=== PATIENT | female | born 1985 | race Caucasian/White ===

== ENCOUNTER 2018-07-11 09:35 | Observation (INO) | payer OTHER ==
[~2018-07-11] VITALS: Ht 154.9 cm; Wt 68.0 kg
[2018-07-11 10:34] VITALS: BP 111/73
[2018-07-11] MEDS ORDERED: PREN1TAB80 PO (10:36)
== END 2018-07-11 12:15 | disposition home or self-care (01) ==
LOC: 4S 09:35
PROVIDERS: ADMIT Obstetrics & Gynecology; ATTEND Obstetrics & Gynecology
DX: O48.0 Post-term pregnancy (principal); Z3A.39 39 weeks gestation of pregnancy
CPT/HCPCS: 59025; 76805; G0378

== ENCOUNTER 2018-07-15 18:00 | Observation (INO) | payer OTHER ==
[~2018-07-15] VITALS: Ht 154.9 cm; Wt 67.8 kg
[~2018-07-15 18:00] MED LIST: PREN1TAB80 PO
== END 2018-07-15 20:15 | disposition home or self-care (01) ==
LOC: 4S 18:00
PROVIDERS: ADMIT Obstetrics & Gynecology; ATTEND Obstetrics & Gynecology
DX: O48.0 Post-term pregnancy (principal); Z3A.41 41 weeks gestation of pregnancy
CPT/HCPCS: 59025; 76805; G0378

== ENCOUNTER 2018-07-17 08:19 | Inpatient (IN) | payer OTHER ==
[~2018-07-17] VITALS: Ht 154.9 cm; Wt 67.6 kg
[2018-07-17] MEDS ORDERED: OXYTOCIN 30 UNITS/LACT RINGERS 500 ML IV ONE (15:31)
[2018-07-17] MEDS ORDERED: RINGERS SOLUTION,LACTATED 1,000 ML IV PRN (15:31)
[2018-07-17] MEDS ORDERED: FentaNYL CITRATE-PF 100 MCG/2 ML VIAL IVP PRN (15:45)
[2018-07-17] MEDS ORDERED: METOCLOPRAMIDE HCL 5 MG/ML 2 ML VIAL IVP PRN (15:45)
[2018-07-17] MEDS ORDERED: LIDOCAINE/PF 1% 30 ML VIAL INJ PRN (15:45)
[2018-07-17] MEDS ORDERED: CITRIC ACID/SODIUM CITRATE 30 ML SOLUTION UDCUP PO PRN (15:45)
[2018-07-17] MEDS: RINGERS SOLUTION,LACTATED 1,000 ML IV SCH ×2 (16:12→18:55)
[2018-07-17 16:29] LABS: BASOPHILS % (AUTO) 0.1 % (0.0-2.0); EOSINOPHILS % (AUTO) 0.4 % (1.0-6.0); HEMATOCRIT 33.6 % (36-46); LYMPHOCYTES # (AUTO) 1.4 K/uL (1.0-4.8); LYMPHOCYTES % (AUTO) 17.2 % (22.0-44.0); MEAN CORPUSCULAR HEMOGLOBIN 23.1 pg (26.0-34.0); MEAN CORPUSCULAR HGB CONC 32.7 G/dL (31.0-37.0); MEAN CORPUSCULAR VOLUME 71 fL (80-100); MONOCYTES # (AUTO) 0.5 K/uL (0.1-1.0); MONOCYTES % (AUTO) 6.5 % (2.0-9.0); NEUTROPHILS # (AUTO) 6.2 K/uL (1.8-7.7); NEUTROPHILS % (AUTO) 75.8 % (40.0-70.0); PLATELET COUNT (AUTO)-OB 176 K/uL (150-450); RED BLOOD CELL COUNT(AUTO) 4.76 MIL/uL (4.00-5.20); RED CELL DISTRIBUTION WIDTH 18.4 % (11.5-14.5)
[2018-07-17 16:55] LABS: PLATELET MORPHOLOGY COMMENT LARGE PLTS PRESENT
[2018-07-17 17:29] LABS: PATHOLOGY REVIEW, DIFF SEE NOTE.
[2018-07-17] MEDS ORDERED: ROPIVACAINE HCL/PF 0.2% 100 ML ED PRN (18:15)
[2018-07-17] MEDS ORDERED: ONDANSETRON HCL 4 MG/2 ML VIAL IVP PRN (18:15)
[2018-07-17] MEDS ORDERED: DiphenhydrAMINE HCL 50 MG/ML VIAL IVP PRN (18:15)
[2018-07-17] MEDS ORDERED: OXYTOCIN 30 UNITS/LACT RINGERS 500 ML IV PRN (19:15)
[2018-07-17] MEDS ORDERED: OXYGEN THERAPY IH SCH (20:00)
[2018-07-18] MEDS ORDERED: OXYTOCIN 30 UNITS/LACT RINGERS 500 ML IV ONE (03:17)
[2018-07-18] MEDS ORDERED: LANOLIN 7 GM OINTMENT TP PRN (03:30)
[2018-07-18] MEDS ORDERED: BENZOCAINE 20%/MENTHOL 56 GM SPRAY CANISTER TP PRN (03:30)
[2018-07-18] MEDS ORDERED: GLYCERIN/WITCH HAZEL LEAF 40 PADS JAR TP PRN (03:30)
[2018-07-18] MEDS ORDERED: OxyCODONE HCL/ACETAMINOPHEN 5-325 MG TABLET PO PRN (03:30)
[2018-07-18] MEDS ORDERED: LIDOCAINE/PF 1% 30 ML VIAL INJ PRN (03:30)
[2018-07-18] MEDS: OxyCODONE HCL/ACETAMINOPHEN 5-325 MG TABLET PO PRN ×2 (04:40→08:43)
[2018-07-18] MEDS: IBUPROFEN 800 MG TABLET PO PRN ×2 (05:13→17:02)
[2018-07-18] MEDS: MAGNESIUM HYDROXIDE SUSPENSION 30 ML UDCUP PO PRN ×2 (08:44→20:31)
[2018-07-19] MEDS: IBUPROFEN 800 MG TABLET PO PRN (02:37)
[2018-07-19 06:40] LABS: BASOPHILS % (AUTO) 0.6 % (0.0-2.0); EOSINOPHILS % (AUTO) 1.1 % (1.0-6.0); HEMATOCRIT 25.7 % (36-46); HEMOGLOBIN 8.5 g/dL (12.0-16.0); MEAN CORPUSCULAR HEMOGLOBIN 23.2 pg (26.0-34.0); MEAN CORPUSCULAR VOLUME 70 fL (80-100); MONOCYTES # (AUTO) 0.7 K/uL (0.1-1.0); MONOCYTES % (AUTO) 5.4 % (2.0-9.0); NEUTROPHILS # (AUTO) 10.2 K/uL (1.8-7.7); NEUTROPHILS % (AUTO) 77.9 % (40.0-70.0); PLATELET COUNT (AUTO)-OB 154 K/uL (150-450); RED BLOOD CELL COUNT(AUTO) 3.65 MIL/uL (4.00-5.20); RED CELL DISTRIBUTION WIDTH 18.4 % (11.5-14.5)
[2018-07-19 07:58] LABS: PLATELET MORPHOLOGY COMMENT LARGE PLTS PRESENT
[2018-07-19] MEDS ORDERED: IBUP-2071 PO (09:25)
[2018-07-19] MEDS ORDERED: FERR-89 PO (09:25)
[2018-07-19] MEDS ORDERED: DSS100 PO (09:26)
[2018-07-19] MEDS: MAGNESIUM HYDROXIDE SUSPENSION 30 ML UDCUP PO PRN (09:49)
== END 2018-07-19 13:10 | disposition home or self-care (01) | DRG 807 ==
LOC: OBSVTOIN 08:19 → 4S 08:19
PROVIDERS: ADMIT Obstetrics & Gynecology; ATTEND Obstetrics & Gynecology
PROC: 10E0XZZ Delivery of Products of Conception, External Approach (ICD-10-PCS; principal; 2018-07-18)
PROC: 0KQM0ZZ Repair Perineum Muscle, Open Approach (ICD-10-PCS; 2018-07-18)
PROC: 3E0R3BZ Introduction of Anesthetic Agent into Spinal Canal, Percutaneous Approach (ICD-10-PCS; 2018-07-18)
PROC: 00HU33Z Insertion of Infusion Device into Spinal Canal, Percutaneous Approach (ICD-10-PCS; 2018-07-18)
PROC: 3E0334Z Introduction of Serum, Toxoid and Vaccine into Peripheral Vein, Percutaneous Approach (ICD-10-PCS; 2018-07-18)
DX: O69.81X0 Labor and delivery complicated by cord around neck, without compression, not applicable or unspecified (principal); Z37.0 Single live birth; O77.0 Labor and delivery complicated by meconium in amniotic fluid; O70.1 Second degree perineal laceration during delivery; Z3A.41 41 weeks gestation of pregnancy
CPT/HCPCS: 85461; 86850; 86900; 86901; J2590; J2795; J3010; J7120

== ENCOUNTER 2020-01-13 17:49 | Observation (INO) | payer OTHER ==
[~2020-01-13] VITALS: Ht 160 cm; Wt 71.2 kg
[~2020-01-13 17:49] MED LIST changes: +DSS100 PO; +FERR-89 PO; +IBUP-2071 PO
[2020-01-13] MEDS ORDERED: PREN-217 PO (17:53)
[2020-01-13 17:55] VITALS: BP 112/73
== END 2020-01-13 18:50 | disposition home or self-care (01) ==
LOC: 4S 17:49
PROVIDERS: ADMIT Obstetrics & Gynecology Obstetrics; ATTEND Obstetrics & Gynecology Obstetrics
DX: O62.9 Abnormality of forces of labor, unspecified (principal); Z3A.39 39 weeks gestation of pregnancy
CPT/HCPCS: 59025; 81001; G0378

== ENCOUNTER 2020-01-15 05:27 | Inpatient (IN) | payer OTHER ==
[~2020-01-15] VITALS: Ht 160 cm; Wt 70.8 kg
[~2020-01-15 05:27] MED LIST changes: +PREN-217 PO
[2020-01-15 06:47] VITALS: BP 127/76
[2020-01-15] MEDS ORDERED: PREN-196 PO (06:59)
[2020-01-15] MEDS ORDERED: RINGERS SOLUTION,LACTATED 1,000 ML IV PRN (08:04)
[2020-01-15] MEDS ORDERED: OXYTOCIN 30 UNITS/LACT RINGERS 500 ML IV ONE ×2 (08:04→17:02)
[2020-01-15] MEDS ORDERED: CITRIC ACID/SODIUM CITRATE 30 ML SOLUTION UDCUP PO PRN (08:15)
[2020-01-15] MEDS ORDERED: METOCLOPRAMIDE HCL 5 MG/ML 2 ML VIAL IVP PRN (08:15)
[2020-01-15] MEDS ORDERED: METHYLERGONOVINE MALEATE 0.2 MG/ML VIAL IM PRN (08:15)
[2020-01-15] MEDS ORDERED: FentaNYL CITRATE-PF 100 MCG/2 ML VIAL IVP PRN (08:15)
[2020-01-15] MEDS ORDERED: PNV1TABL54 PO (08:20)
[2020-01-15] MEDS: RINGERS SOLUTION,LACTATED 1,000 ML IV SCH ×2 (08:31→15:34)
[2020-01-15 09:09] LABS: BASOPHILS % (AUTO) 0.4 % (0.0-2.0); EOSINOPHILS % (AUTO) 0.8 % (1.0-6.0); HEMATOCRIT 36.7 % (36-46); HEMOGLOBIN 11.8 g/dL (12.0-16.0); LYMPHOCYTES # (AUTO) 1.7 K/uL (1.0-4.8); LYMPHOCYTES % (AUTO) 21.2 % (22.0-44.0); MEAN CORPUSCULAR VOLUME 75 fL (80-100); MONOCYTES # (AUTO) 0.5 K/uL (0.1-1.0); MONOCYTES % (AUTO) 6.2 % (2.0-9.0); NEUTROPHILS # (AUTO) 5.6 K/uL (1.8-7.7); NEUTROPHILS % (AUTO) 71.4 % (40.0-70.0); PLATELET COUNT (AUTO)-OB 165 K/uL (150-450); RED BLOOD CELL COUNT(AUTO) 4.91 MIL/uL (4.00-5.20); RED CELL DISTRIBUTION WIDTH 25.3 % (11.5-14.5)
[2020-01-15] MEDS ORDERED: DOCU-275 PO (10:47)
[2020-01-15] MEDS ORDERED: INFLUENZA VIRUS VACCINE QVS 2019-20 (3YR+)/PF 60 MCG/0.5 ML SYRINGE IM ONE (11:00)
[2020-01-15] MEDS ORDERED: ROPIVACAINE HCL/PF 0.2% 100 ML ED ONE (11:23)
[2020-01-15] MEDS ORDERED: ROPIVACAINE HCL/PF 0.2% 100 ML ED PRN (12:30)
[2020-01-15] MEDS ORDERED: ONDANSETRON HCL 4 MG/2 ML VIAL IVP PRN (12:30)
[2020-01-15] MEDS ORDERED: DiphenhydrAMINE HCL 50 MG/ML VIAL IVP PRN (12:30)
[2020-01-15] MEDS ORDERED: NALBUPHINE HCL 10 MG/ML VIAL IVP PRN (12:30)
[2020-01-15] MEDS ORDERED: OXYTOCIN 30 UNITS/LACT RINGERS 500 ML IV PRN (14:10)
[2020-01-15] MEDS ORDERED: BUPIVACAINE HCL/PF 0.5% 10 ML VIAL ONE (15:19)
[2020-01-15] MEDS ORDERED: MINERAL OIL 30 ML UDCUP VG ONE (16:00)
[2020-01-15] MEDS ORDERED: BENZOCAINE 20%/MENTHOL 56 GM SPRAY CANISTER TP PRN (17:15)
[2020-01-15] MEDS ORDERED: GLYCERIN/WITCH HAZEL LEAF 40 PADS JAR TP PRN (17:15)
[2020-01-15] MEDS ORDERED: LANOLIN 7 GM OINTMENT TP PRN (17:15)
[2020-01-15] MEDS ORDERED: LIDOCAINE/PF 1% 30 ML VIAL INJ PRN (17:15)
[2020-01-15] MEDS ORDERED: OxyCODONE HCL/ACETAMINOPHEN 5-325 MG TABLET PO PRN ×2 (17:15)
[2020-01-15] MEDS: IBUPROFEN 800 MG TABLET PO PRN ×2 (18:30→21:15)
[2020-01-15] MEDS ORDERED: OXYGEN THERAPY IH SCH (20:00)
[2020-01-15] MEDS: MAGNESIUM HYDROXIDE SUSPENSION 30 ML UDCUP PO PRN (21:14)
[2020-01-16 08:25] LABS: BASOPHILS % (AUTO) 0.6 % (0.0-2.0); HEMATOCRIT 33.8 % (36-46); HEMOGLOBIN 10.9 g/dL (12.0-16.0); LYMPHOCYTES % (AUTO) 22.6 % (22.0-44.0); MEAN CORPUSCULAR HEMOGLOBIN 24.2 pg (26.0-34.0); MEAN CORPUSCULAR HGB CONC 32.2 G/dL (31.0-37.0); MEAN CORPUSCULAR VOLUME 75 fL (80-100); MONOCYTES # (AUTO) 0.5 K/uL (0.1-1.0); MONOCYTES % (AUTO) 5.9 % (2.0-9.0); NEUTROPHILS # (AUTO) 6.3 K/uL (1.8-7.7); NEUTROPHILS % (AUTO) 69.9 % (40.0-70.0); PLATELET COUNT (AUTO)-OB 144 K/uL (150-450); RED BLOOD CELL COUNT(AUTO) 4.49 MIL/uL (4.00-5.20)
[2020-01-16] MEDS: MAGNESIUM HYDROXIDE SUSPENSION 30 ML UDCUP PO PRN (08:39)
[2020-01-16] MEDS: IBUPROFEN 800 MG TABLET PO PRN (08:41)
[2020-01-16] MEDS ORDERED: IBUP-2071 PO (10:06)
[2020-01-16 14:24] VITALS: BP 109/68
== END 2020-01-16 16:50 | disposition home or self-care (01) | DRG 807 ==
LOC: OBSVTOIN 05:27 → 4S 05:27
PROVIDERS: ADMIT Obstetrics & Gynecology; ATTEND Obstetrics & Gynecology
PROC: 10E0XZZ Delivery of Products of Conception, External Approach (ICD-10-PCS; principal; 2020-01-15)
PROC: 0KQM0ZZ Repair Perineum Muscle, Open Approach (ICD-10-PCS; 2020-01-15)
PROC: 10907ZC Drainage of Amniotic Fluid, Therapeutic from Products of Conception, Via Natural or Artificial Opening (ICD-10-PCS; 2020-01-15)
PROC: 3E02340 Introduction of Influenza Vaccine into Muscle, Percutaneous Approach (ICD-10-PCS; 2020-01-15)
PROC: 3E0R3BZ Introduction of Anesthetic Agent into Spinal Canal, Percutaneous Approach (ICD-10-PCS; 2020-01-15)
PROC: 00HU33Z Insertion of Infusion Device into Spinal Canal, Percutaneous Approach (ICD-10-PCS; 2020-01-15)
PROC: 30233S1 Transfusion of Nonautologous Globulin into Peripheral Vein, Percutaneous Approach (ICD-10-PCS; 2020-01-16)
DX: O69.81X0 Labor and delivery complicated by cord around neck, without compression, not applicable or unspecified (principal); Z37.0 Single live birth; O77.0 Labor and delivery complicated by meconium in amniotic fluid; O70.1 Second degree perineal laceration during delivery; Z3A.40 40 weeks gestation of pregnancy
CPT/HCPCS: 85461; 86850; 86870; 86900; 86901; 90686; J2590; J2795; J3490; J7120